=== PATIENT | male | born 1990 | race Caucasian/White ===

== ENCOUNTER 2023-10-19 21:04 | Emergency (ER) | payer SELFPAY ==
[~2023-10-19] VITALS: Ht 167.6 cm; Wt 77.0 kg
[2023-10-19 21:14] VITALS: O2SAT 99
[2023-10-20 00:32] LABS: CHLORIDE 107 mEq/L (98-107); POTASSIUM 4.1 mEq/L (3.5-5.1); SODIUM 140 mEq/L (136-145)
[2023-10-20 00:33] LABS: BASOPHILS % 0.7 % (0.0-2.0); CALCIUM 10.5 mg/dL (8.7-10.4); CARBON DIOXIDE 25 mEq/L (21-32); EOSINOPHILS % 0.1 % (0.0-5.0); HEMATOCRIT. 42.2 % (42.0-52.0); HEMOGLOBIN. 14.5 g/dL (14.0-18.0); LYMPHOCYTES % 11.4 % (20.0-50.0); MEAN CORPUSCULAR HEMOGLOBIN 30.7 pg (28.0-32.0); MEAN CORPUSCULAR HGB CONC 34.3 g/dL (31.0-37.0); MEAN CORPUSCULAR VOLUME 89.5 fL (80.0-94.0); MEAN PLATELET VOLUME 9.3 fl (7.4-10.4); MONOCYTES % 4.3 % (2.0-8.0); NEUTROPHILS % 83.5 % (40.0-76.0); PLATELET 246 x1000/uL (130-400); RED BLOOD CELL COUNT 4.71 mill/uL (4.7-6.1); RED CELL DISTRIBUTION WIDTH 13.1 % (11.6-14.6); WHITE BLOOD COUNT 18.2 x1000/uL (4.5-11.0)
[2023-10-20 00:38] LABS: GLUCOSE 110 mg/dL (70-105); UREA NITROGEN BLOOD 11 mg/dL (9-23)
[2023-10-20 00:45] LABS: TROPONIN I HIGH SENSITIVITY < 4 ng/L (3.0-53)
[2023-10-20] MEDS ORDERED: IBUP-2028 MT (01:19)
[2023-10-20 01:30] VITALS: BP 138/58; PULSE 88; RESP 14; TEMP 97.7
== END 2023-10-20 02:18 | disposition home or self-care (01) ==
LOC: ER 21:04
DX: R07.89 Other chest pain (principal); R06.00 Dyspnea, unspecified; F41.9 Anxiety disorder, unspecified; F32.9 Major depressive disorder, single episode, unspecified; I10 Essential (primary) hypertension; F12.10 Cannabis abuse, uncomplicated
CPT/HCPCS: 36415; 71045; 80048; 84484; 85025; 93005; 99285

== ENCOUNTER 2024-02-12 18:52 | Emergency (ER) | payer OTHER ==
[~2024-02-12] VITALS: Ht 170.2 cm; Wt 75.0 kg
[~2024-02-12 18:52] MED LIST: IBUP-2028 MT
[2024-02-12 19:06] VITALS: O2SAT 98
[2024-02-12] MEDS: DEXAMETHASONE 10 MG/ML VIAL IM ONE (19:30)
[2024-02-12] MEDS: METOCLOPRAMIDE HCL 10MG/2ML VIAL IM ONE (20:15)
[2024-02-12] MEDS: KETOROLAC 15MG/ML VIAL IM ONE (20:15)
[2024-02-12] MEDS ORDERED: NAPR-1176 MT (20:58)
[2024-02-12 21:26] VITALS: BP 139/85; PULSE 65; RESP 16; TEMP 36.55848; O2SAT 95
== END 2024-02-12 21:28 | disposition home or self-care (01) ==
LOC: ER 18:52
DX: S06.0X0A Concussion without loss of consciousness, initial encounter (principal); F41.9 Anxiety disorder, unspecified; F32.9 Major depressive disorder, single episode, unspecified; I10 Essential (primary) hypertension; F12.10 Cannabis abuse, uncomplicated; X58.XXXA Exposure to other specified factors, initial encounter; Y93.89 Activity, other specified; Y92.89 Other specified places as the place of occurrence of the external cause; Y99.8 Other external cause status
CPT/HCPCS: 70450; 96372; 99285; J1100; J1885; J2765; Z7610